=== PATIENT | male | born 1980 | race Caucasian/White ===

== ENCOUNTER → 2021-08-16 11:44 | Outpatient (CLI) | payer OTHER, SELFPAY ==
[2021-08-16 13:14] LABS: Coronavirus 19 IgG Antibody Negative (Negative); Coronavirus 19 IgM Antibody Negative (Negative)
== END ==
PROVIDERS: PCP Pediatrics; Visit Provider Nurse Practitioner
DX: Z01.84 Encounter for antibody response examination (principal)
CPT/HCPCS: 36415; 86328

== ENCOUNTER → 2022-08-22 11:10 | Outpatient (CLI) | payer OTHER, SELFPAY ==
[2022-08-22 18:29] LABS: Influenza A, PCR Not Detected (NotDetected); Influenza B, PCR Not Detected (NotDetected)
[2022-08-22 21:05] LABS: Coronavirus 19, PCR Detected (NotDetected)
== END ==
PROVIDERS: PCP Nurse Practitioner; Visit Provider Nurse Practitioner
DX: U07.1 COVID-19 (principal)
CPT/HCPCS: C9803; U0003; U0005